=== PATIENT | female | born 1995 | race Caucasian/White ===

== ENCOUNTER → 2021-05-26 | Outpatient (CLI) | payer BC ==
[~2021-05-26] MED LIST: FEOSOL65 MG PO; VITAMIN C500 MG PO; VITAMIN D32000 I1 PO; WELLBUTRIN SR150 M1 PO; WELLBUTRIN XL300 MG PO
[2021-05-26 10:56] LABS: BASO # 0.02 (0.02-0.10); EOS # 0.29 (0.04-0.40); EOS % 3.2 % (1.0-5.0); HEMATOCRIT 43.6 % (37.0-47.0); HEMOGLOBIN 14.7 g/dL (12.5-16.0); LYMPH# 3.39 (1.50-4.00); MEAN CELL VOLUME 94 fl (78-100); MEAN CORPUSCULAR HEMOGLOBIN 32 pg (27-31); MEAN CORPUSCULAR HGB CONC 34 g/dL (33-37); MEAN PLATELET VOLUME 9.1 fl (7.4-10.4); MONO # 0.52 (0.20-0.80); NEU # 4.79 (1.40-6.50); PLATELET COUNT 311 K/mm3 (130-400); RED BLOOD COUNT 4.65 M/mm3 (4.10-5.30); RED CELL DISTRIBUTION WIDTH 11.9 % (11.5-14.5)
[2021-05-26 11:03] LABS: ALBUMIN 4.1 g/dL (3.5-5.0); POTASSIUM 3.9 mmol/L (3.5-5.1)
[2021-05-26 11:04] LABS: CALCIUM 9.1 mg/dL (8.3-10.5)
[2021-05-26 11:06] LABS: TOTAL PROTEIN 7.4 g/dL (6.4-8.3)
[2021-05-26 11:07] LABS: TOTAL BILIRUBIN 0.4 mg/dL (0.2-1.2)
== END ==
LOC: LAB 10:21
PROVIDERS: Internal Medicine
DX: Z00.00 Encounter for general adult medical examination without abnormal findings (principal)

== ENCOUNTER → 2021-10-09 | Outpatient (CLI) | payer BC | LOC: LAB 10:06 | DX: Z20.822 Contact with and (suspected) exposure to COVID-19 (principal); E78.2 Mixed hyperlipidemia ==

== ENCOUNTER → 2021-10-12 | Outpatient (CLI) | payer BC | LOC: LAB 17:26 | DX: Z20.822 Contact with and (suspected) exposure to COVID-19 (principal) ==